=== PATIENT | female | born 1985 | race Caucasian/White ===

== ENCOUNTER 2016-09-16 00:12 | Emergency (ER) | payer SELFPAY ==
[~2016-09-16] VITALS: Ht 170.2 cm; Wt 82.1 kg
[2016-09-16] MEDS ORDERED: LIDOCAINE 1%, 20ML ONE (00:51)
[2016-09-16] MEDS ORDERED: ONDANSETRON 2MG/ML, 2ML IVPush ONE (01:00)
[2016-09-16] MEDS ORDERED: SODIUM CHLORIDE FLUSH 10ML SYR IVF ONE (01:00)
[2016-09-16] MEDS ORDERED: LIDOCAINE 1%, 20ML SQ ONE (01:00)
[2016-09-16] MEDS ORDERED: HYDROmorphone 1 MG/ML, 1ML IVPush PRN (01:00)
[2016-09-16] MEDS ORDERED: CLINDAMYCIN PMX 600MG/50ML 50 ML IVPB ONE (01:00)
[2016-09-16] MEDS ORDERED: CLINDAMYCIN PMX 600MG/50ML 50 ML ONE (01:31)
[2016-09-16] MEDS ORDERED: ONDANSETRON 2MG/ML, 2ML ONE (01:31)
[2016-09-16] MEDS ORDERED: HYDROmorphone 1 MG/ML, 1ML ONE (01:31)
[2016-09-16 02:04] VITALS: BP 111/67
== END 2016-09-16 02:45 | disposition home or self-care (01) ==
LOC: ED 02:38
DX: L02.414 Cutaneous abscess of left upper limb (principal); Z88.0 Allergy status to penicillin; F17.210 Nicotine dependence, cigarettes, uncomplicated
CPT/HCPCS: 10060; 96365; 96375; 99284; J1170; J2405

== ENCOUNTER 2019-12-24 21:47 | Inpatient (IN) | payer MEDICAID ==
[~2019-12-24] VITALS: Ht 170.2 cm; Wt 90.0 kg
[2019-12-24] MEDS ORDERED: CEFTRIAXONE PMX 1GM/50ML 50 ML IVPB ONE (22:30)
[2019-12-24] MEDS ORDERED: VANCOMYCIN PER PHARMACY MC ONE (22:30)
--- NOTE | 2019-12-24 22:54 | NUR ---
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
[2019-12-24] MEDS ORDERED: VANCOMYCIN 1,800 MG in SODIUM CHLORIDE 0.9% 250 ML IV ONE (23:00)
--- NOTE | 2019-12-24 23:07 | NUR ---
RN TU TO THE PT.'S BEDSIDE TO ASSIST WITH THE PT.'S IV START. #20G WAS PLACED IN THE PT.'S REJ X 1 STICK. LABS OBTAINED OFF OF THE IV START. PT. WAS PLACED ON THE CP MONITOR. PT.'S TEMP IS 101.3. DISCUSSED FINDINGS WITH DR. MCKAY AND ORDERS RECEIVED. REPORT TO THE PRIMARY RN.
[2019-12-24] MEDS ORDERED: CEFTRIAXONE PMX 1GM/50ML 50 ML ONE (23:15)
[2019-12-24] MEDS ORDERED: ACETAMINOPHEN 500 MG TABLET ONE (23:15)
[2019-12-24 23:26] LABS: ALANINE AMINOTRANSFERASE 32 U/L (12-78); ALBUMIN 3.4 g/dL (3.4-5.0); ANION GAP 7 mmol/L (5-15); CALCIUM 8.2 mg/dL (8.5-10.1); CHLORIDE 103 mmol/L (98-107); CREATININE 0.74 mg/dL (0.55-1.02)
--- NOTE | 2019-12-24 23:26 | NUR ---
[facility] STARTED PER ERP AND PHARMACIST. PT STATES HER MOM TOLD HER SHE HAD A REACTION TO [facility] IN THE PAST BUT NOT SURE OF REACTION. INSTRUCTED PT TO NOTIFY RN OF ANY ALLERGIC REACTION SYMPTOMS. IV BOLUS INFUSING. PT MEDICATED FOR HEADACHE AND FEVER.
[2019-12-24 23:28] LABS: MEAN CORPUSCULAR HEMOGLOBIN 28.1 pg (27.0-34.8); MEAN CORPUSCULAR VOLUME 85.2 fL (80-100); MEAN PLATELET VOLUME 8.4 fL (7.4-10.4); PLATELET COUNT 218 x10^3/uL (130-400); RED BLOOD COUNT 4.22 x10^6/uL (3.82-5.3); RED CELL DISTRIBUTION WIDTH 13.7 % (9.6-15.2)
[2019-12-24 23:29] LABS: ALKALINE PHOSPHATASE 59 U/L (45-117); BILIRUBIN,TOTAL 1.3 mg/dL (0.2-1.0); TOTAL PROTEIN 7.9 g/dL (6.4-8.2)
[2019-12-24] MEDS ORDERED: SODIUM CHLORIDE 0.9% 1,000ML IVBOLUS ONE ×2 (23:30)
[2019-12-24] MEDS ORDERED: ACETAMINOPHEN 500 MG TABLET PO ONE (23:30)
--- NOTE | 2019-12-25 | NUR ---
NO REACTION NOTED FROM [facility]. REPORTED TO KEITH ROOT.
[2019-12-25 00:09] LABS: BASOPHILS % (AUTO) 0 % (0-1); EOSINOPHILS % (AUTO) 0 % (1-7); LYMPHOCYTES # (AUTO) 0.79 x10^3/uL (1-3.4); LYMPHOCYTES % (AUTO) 4 % (22-44); MD SCAN; MONOCYTES # (AUTO) 1.01 x10^3/uL (0.2-0.8); MONOCYTES % (AUTO) 5 % (2-9); NEUTROPHILS # (AUTO) 17.44 x10^3/uL (1.8-6.8); NEUTROPHILS % (AUTO) 91 % (42-75)
[2019-12-25] MEDS ORDERED: NS + 20MEQ KCL 1,000 ML IV SCH (00:35)
[2019-12-25] MEDS ORDERED: VANCOMYCIN PER PHARMACY MC PRN (01:00)
[2019-12-25] MEDS ORDERED: HYDROcodone/APAP 5/325 TABLET PO PRN (01:00)
[2019-12-25] MEDS ORDERED: POTASSIUM CHLORIDE 20 MEQ TAB.ER.PRT PO ONE ×2 (01:00→13:00)
[2019-12-25] MEDS ORDERED: ACETAMINOPHEN 325 MG TABLET PO PRN ×2 (01:00→08:00)
[2019-12-25] MEDS ORDERED: morphine SULFATE 10 MG/ML, 1ML IVPush PRN (01:00)
--- NOTE | 2019-12-25 01:00 | NUR ---
REPORT GIVEN TO FLOOR RN. PT IN BED SLEEPING, EYES CLOSED, RESPIRATIONS EVEN AND UNLABORED.
[2019-12-25 01:31] VITALS: BP 97/58
[2019-12-25 02:00] VITALS: BP 97/58
[2019-12-25] MEDS ORDERED: PHARMACOKINETIC MONITORING MC PRN (02:00)
[2019-12-25] MEDS ORDERED: PHARMACOKINETIC CONSULTATION MC ONE (02:00)
[2019-12-25] MEDS ORDERED: NICOTINE 7 MG/24 HR PATCH.TD24 TD SCH (02:30)
[2019-12-25] MEDS: HEPARIN 5,000 UNITS/ML, 1ML SQ SCH ×3 (02:43→19:00)
[2019-12-25] MEDS ORDERED: MAGNESIUM SULFATE PMX 4GM/100M 100 ML IV ONE (07:30)
[2019-12-25 07:37] VITALS: BP 123/76
[2019-12-25] MEDS: OXYcodone IR 5MG TABLET PO PRN ×3 (07:55→17:58)
[2019-12-25 08:55] LABS: MEAN CORPUSCULAR HGB CONC 32.6 g/dL (32.4-35.8); MEAN CORPUSCULAR VOLUME 85.7 fL (80-100); MEAN PLATELET VOLUME 8.1 fL (7.4-10.4); PLATELET COUNT 189 x10^3/uL (130-400); RED BLOOD COUNT 4.01 x10^6/uL (3.82-5.3); RED CELL DISTRIBUTION WIDTH 13.9 % (9.6-15.2)
[2019-12-25 09:00] LABS: ANION GAP 6 mmol/L (5-15); CALCIUM 8.5 mg/dL (8.5-10.1); CHLORIDE 111 mmol/L (98-107); CREATININE 0.71 mg/dL (0.55-1.02)
[2019-12-25 10:08] LABS: MD YES
[2019-12-25 10:10] LABS: BANDS%(MANUAL) 5 % (0-7); LYMPH#(MANUAL) 1.25 x10^3/uL (1-3.4); LYMPHS% (MANUAL) 9 % (22-44); MONOS#(MANUAL) 0.42 x10^3/uL (0.3-2.7); MONOS% (MANUAL) 3 % (2-9); SEG#(MANUAL) 11.54 x10^3/uL (1.8-6.8); SEGS% (MANUAL) 83 % (42-75)
[2019-12-25 10:11] LABS: <PLATELET ESTIMATE> ADEQUATE; <PLT MORPHOLOGY> NORMAL PLT MORPH; <RBC MORPHOLOGY> NORMAL
[2019-12-25] MEDS ORDERED: VANCOMYCIN 1,700 MG in SODIUM CHLORIDE 0.9% 250 ML IV SCH (12:00)
[2019-12-25 15:34] VITALS: BP 112/76
[2019-12-25 18:36] VITALS: BP 111/73
[2019-12-25] MEDS ORDERED: CEFTRIAXONE PMX 1GM/50ML 50 ML IV SCH (23:00)
== END 2019-12-25 23:52 | disposition left against medical advice (07) | DRG 872 ==
LOC: ED 23:10 → 3N 12-25 01:42
PROVIDERS: ADMIT Family Medicine; ATTEND Internal Medicine
DX: A41.9 Sepsis, unspecified organism (principal); L03.116 Cellulitis of left lower limb; E66.9 Obesity, unspecified; E83.42 Hypomagnesemia; E87.6 Hypokalemia; F15.10 Other stimulant abuse, uncomplicated; F11.10 Opioid abuse, uncomplicated; F17.210 Nicotine dependence, cigarettes, uncomplicated; Z68.31 Body mass index [BMI] 31.0-31.9, adult; Z88.0 Allergy status to penicillin; Z71.6 Tobacco abuse counseling
CPT/HCPCS: 36415; 80048; 80053; 83605; 83735; 84145; 84703; 85025; 87040; 87806; G0378; J0696; J1644; J3370; J3480; G0475; J3475; J7030; J7050